=== PATIENT | female | born 1970 | race Two or more races ===

== ENCOUNTER 2022-06-10 23:20 | Emergency (ER) | payer MEDICAID, OTHER ==
[~2022-06-10] VITALS: Ht 165.1 cm; Wt 100.5 kg
[2022-06-10] MEDS ORDERED: LORAZEPAM INJ 2 MG/ML VIAL ONE (23:37)
--- NOTE | 2022-06-10 23:45 | NUR ---
Pt is noted resting as she is brought from home , Legally Blind , woke up sreaming uncontrollably , S/P Nitro spray given in field. Pt care continue.
[2022-06-11] MEDS ORDERED: LORAZEPAM INJ 2 MG/ML VIAL IVP ONE
[2022-06-11 00:39] LABS: BASOPHILS % (AUTO) 0.4 % (0.0-2.0); EOSINOPHILS % (AUTO) 0.9 % (0.0-6.0); HEMATOCRIT 42 % (33-45); HEMOGLOBIN 13.7 g/dL (11.5-14.8); LYMPHOCYTES # (AUTO) 2.4 K/uL (0.8-4.8); LYMPHOCYTES % (AUTO) 28.4 % (20.0-44.0); MEAN CORPUSCULAR HGB CONC 33 g/dl (31.0-36.0); MEAN CORPUSCULAR VOLUME 91 fL (82-100); MONOCYTES # (AUTO) 0.7 K/uL (0.1-1.30); MONOCYTES % (AUTO) 8.8 % (2.0-12.0); NEUTROPHILS # (AUTO) 5.2 K/uL (1.8-8.9); NEUTROPHILS % (AUTO) 61.5 % (43.0-81.0); PLATELET COUNT (AUTO) 203 K/uL (150-450); RED BLOOD CELL COUNT(AUTO) 4.65 MIL/uL (4.0-5.2); WHITE BLOOD COUNT (AUTO) 8.5 K/uL (4.3-11.0)
[2022-06-11 00:46] LABS: CALCIUM, SERUM 8.7 mg/dL (8.5-10.1); CARBON DIOXIDE 31 mmol/L (21-32); CHLORIDE 104 mmol/L (98-107); CREATININE 0.8 mg/dL (0.6-1.3); GLUCOSE 105 mg/dL (74-106); POTASSIUM 3.8 mmol/L (3.5-5.1); SODIUM SERUM 140 mmol/L (136-145); UREA NITROGEN, BLOOD 14 mg/dL (7-18)
--- NOTE | 2022-06-11 00:50 | NUR ---
LAB AND URINE SENT . PT CARE CONTINUE.
[2022-06-11 01:01] LABS: BILIRUBIN,URINE NEGATIVE (NEGATIVE); LEUKOCYTE ESTERASE ,URINE NEGATIVE (NEGATIVE); NITRITE, URINE NEGATIVE (NEGATIVE); PROTEIN,URINE NEGATIVE (NEGATIVE); UGLUCOSE NEGATIVE (NEGATIVE); UROBILINOGEN,URINE 0.2 EU/dL (0.2)
[2022-06-11 01:03] LABS: COLOR,URINE LIGHT YELLOW (YELLOW)
[2022-06-11 01:24] LABS: ALANINE AMINOTRANSFERASE 131 U/L (12-78); ALBUMIN 3.5 g/dL (3.4-5.0); ALKALINE PHOSPHATASE 145 U/L (46-116); ASPARTATE AMINOTRANSFERASE 60 U/L (15-37); BILIRUBIN,DIRECT 0.1 mg/dL (0.0-0.2); BILIRUBIN,TOTAL 0.2 mg/dL (0.2-1.0); TOTAL PROTEIN, SERUM 7.9 g/dL (6.4-8.2)
[2022-06-11 01:34] LABS: ACETAMINOPHEN < 10 ug/ml (10-30); ALCOHOL, BLOOD < 3 mg/dL (0-0)
--- NOTE | 2022-06-11 01:56 | NUR ---
LEENA MELTON ATTEMPTED TO DO A PSYCH EVALL BUT PT WAS NOT ARROUSABLE. PT RECEIVED UPON ARRIVAL.
[2022-06-11] MEDS ORDERED: LORAZEPAM INJ 2 MG/ML VIAL IV ONE ×2 (02:00→05:00)
[2022-06-11] MEDS ORDERED: LORAZEPAM INJ 2 MG/ML VIAL ONE ×2 (02:05→04:50)
--- NOTE | 2022-06-11 02:12 | NUR ---
GIVE UPDATE TO JUSTINE JASON [phone]
--- NOTE | 2022-06-11 02:14 | NUR ---
Pt awake Anxious and scraming with Ativan 1mg IVP given as ordered. Pt care continue as she is been monitor closely.
--- NOTE | 2022-06-11 05:00 | NUR ---
Pt noted Anxiuos again as another dose off 1mg IVP off Ativan given as ordered. Pt care continue.
--- NOTE | 2022-06-11 07:19 | NUR ---
Pt care continue as report is given to the AM receiving nurse.
--- NOTE | 2022-06-11 08:15 | NUR ---
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
[2022-06-11] MEDS ORDERED: LORAZEPAM 1 MG TABLET ONE (10:23)
[2022-06-11] MEDS ORDERED: LORAZEPAM 1 MG TABLET PO ONE (10:30)
[2022-06-11] MEDS ORDERED: LORA-259 PO (11:21)
--- NOTE | 2022-06-11 11:54 | NUR ---
pt stable condition , d/c to go home son and daughter in law present, son signed for pt, giving pt a few moments to wake up and get strength to get up in wheel chair to go home at this time.
--- NOTE | 2022-06-11 12:17 | NUR ---
pt d/c wheel chair to transfer with family and nanny caregiver present to go home at this time stable condition
[2022-06-11 12:18] VITALS: BP 144/88
--- NOTE | 2022-06-11 12:18 | NUR ---
STOP IV 1150 AM site is intact skin is intact
== END 2022-06-11 12:19 | disposition home or self-care (01) ==
LOC: ER 23:22
DX: F20.2 Catatonic schizophrenia (principal); R51.9 Headache, unspecified; F32.A Depression, unspecified; F41.9 Anxiety disorder, unspecified
CPT/HCPCS: 99285; 96374; 70450; 85025; 80048; 80076; 81003; 36415; 80143; 80320; 80307; 96376; J2060 ×3; G0480